=== PATIENT | female | born 1995 | race American Indian/Alaskan Native ===

== ENCOUNTER 2017-01-24 10:47 | Emergency (ER) | payer SELFPAY ==
--- NOTE | 2017-01-24 11:08 | Emergency Department Report ---
Stated Complaint: LEFT OVARIAN PAIN Time Seen by Provider: 01/24/17 11:05 - HPI History of Present Illness: pt c/o left pelvic pain x 4 days. PT states she feels swollen - ROS Review of Systems: - dysuria - Exam Physical Exam: thin female, no acute resp distress abd, flat, not ttp MSE screening note: Focused history and physical exam performed. Due to findings the following was ordered: labs ED Disposition for MSE Condition: Stable
[2017-01-24 11:09] VITALS: BP 115/70
[2017-01-24 11:42] LABS: Bilirubin,Urine NEG (Negative); Blood,Urine NEG (Negative); Ketones,Urine NEG (Negative); Leukocyte Esterase,Urine LG (Negative); Mucus,Urine FEW /HPF; Nitrite,Urine NEG (Negative); Protein,Urine <15 mg/dL mg/dL (Negative); Urobilinogen,Urine < 2.0 mg/dL (<2.0)
[2017-01-24] MEDS ORDERED: TORADOL IV ONE (12:33)
[2017-01-24] MEDS ORDERED: ZOFRAN IV ONE (12:33)
--- NOTE | 2017-01-24 12:39 | Emergency Department Report ---
HPI - General Chief Complaint: Abdominal Pain Time Seen by Provider: 01/24/17 11:05 - HPI HPI: Room 32 The patient is a 21-year-old female presenting with chief complaint left flank pain. The patient states she has her cycle approximately one week ago following day she began to feel bloated and constipated. Patient states she's had dysuria or hematuria. Patient denies fever. Patient is to nausea but denies vomiting. Patient currently gets her cramping pain score 10/10 Location: [see above] Duration: One week Quality: Cramping Severity:10/10 Modifying factors: [see above] Context: [see above] Mode of transportation: [not driving] ED Past Medical Hx - Past Medical History Previous Medical History?: Yes Additional medical history: cranial/facial disorder - Surgical History Past Surgical History?: Yes Additional Surgical History: cranial/facial surgeries (multiple) - Family History Family history: no significant - Social History Smoking Status: Never Smoker Substance Use Type: None - Medications Home Medications: Home Medications Medication Instructions Recorded Confirmed Last Taken Type Ondansetron [Zofran ODT TAB] 8 mg PO Q8HR #20 tab.rapdis 12/15/15 Unknown Rx medroxyPROGESTERone ACETATE 10 mg PO QDAY #10 tablet 12/15/15 Unknown Rx [Provera] traMADol [Ultram] 50 mg PO Q6HR PRN #14 tablet 12/15/15 Unknown Rx HYDROcodone/APAP 5-325 [[place] 1 - 2 each PO Q6HR PRN #10 tablet 01/24/17 Unknown Rx 5/325] Ibuprofen [Motrin 800 MG tab] 800 mg PO Q8HR PRN #20 tablet 01/24/17 Unknown Rx Levofloxacin [Levaquin TAB] 500 mg PO QDAY #7 tablet 01/24/17 Unknown Rx Promethazine [Phenergan TAB] 25 mg PO Q6HR PRN #20 tab 01/24/17 Unknown Rx ED Review of Systems ROS: Stated complaint: LEFT OVARIAN PAIN Other details as noted in HPI Comment: All other systems reviewed and negative Constitutional: denies: chills, fever Eyes: denies: eye pain, eye discharge, vision change ENT: denies: ear pain, throat pain Respiratory: denies: cough, shortness of breath, wheezing Cardiovascular: denies: chest pain, palpitations Endocrine: no symptoms reported Gastrointestinal: abdominal pain Genitourinary: denies: urgency, dysuria Musculoskeletal: back pain Skin: denies: rash, lesions Neurological: denies: headache, weakness, paresthesias Psychiatric: denies: anxiety, depression Physical Exam - Physical Exam Vital Signs: Vital Signs 01/24/17 11:07 Temperature 98.2 F Pulse Rate 73 Respiratory 18 Rate Blood Pressure 115/70 O2 Sat by Pulse 100 Oximetry Physical Exam: GENERAL: The patient is well-developed well-nourished female sitting on stretcher not appearing to be in acute distress. Patient appears uncomfortable as she transfers from the chair to the stretcher for examination HEENT: Atraumatic. Extraocular motions are intact. NECK: Supple. Trachea midline CHEST/LUNGS: Clear to auscultation. There is no respiratory distress noted. HEART/CARDIOVASCULAR: Regular. There is no tachycardia. There is no gallop rub or murmur. ABDOMEN: Abdomen is soft, with tenderness to palpation in the suprapubic and left lower quadrant. Patient has normal bowel sounds. There is no abdominal distention. SKIN: There is no rash. There is no edema. There is no diaphoresis. NEURO: The patient is awake, alert, and oriented. The patient is cooperative. The patient has normal speech MUSCULOSKELETAL: There is no CVA tenderness. There is no evidence of acute injury. ED Course Vital Signs 01/24/17 11:07 Temperature 98.2 F Pulse Rate 73 Respiratory 18 Rate Blood Pressure 115/70 O2 Sat by Pulse 100 Oximetry ED Medical Decision Making - Lab Data Result diagrams: 01/24/17 12:57 01/24/17 12:57 Laboratory Tests 01/24/17 01/24/17 01/24/17 11:18 12:57 12:57 WBC 4.4 L RBC 4.87 Hgb 12.2 Hct 38.1 MCV 78 L MCH 25 L MCHC 32 RDW 16.5 H Plt Count 187 Lymph % (Auto) 23.3 Butts % (Auto) 10.6 H Eos % (Auto) 0.7 Baso % (Auto) 0.7 Lymph # 1.0 L Butts # 0.5 Eos # 0.0 Baso # 0.0 Seg Neutrophils % 64.7 Seg Neutrophils # 2.9 Sodium 136 L Potassium 4.5 Chloride 102.0 Carbon Dioxide 23 Anion Gap 16 BUN 14 Creatinine 0.7 Estimated GFR > 60 BUN/Creatinine Ratio 20.00 Glucose 93 Calcium 9.1 Urine Color Yellow Urine Turbidity Slightly-cloudy Urine pH 6.0 Ur Specific Donna 1.016 Urine Protein <15 mg/dl Urine Glucose (UA) Neg Urine Ketones Neg Urine Blood Neg Urine Nitrite Neg Ur Reducing Substances Not Reportable Urine Bilirubin Neg Urine Ictotest Not Reportable Urine Urobilinogen < 2.0 Ur Leukocyte Esterase Lg Urine WBC (Auto) 58.0 H Urine RBC (Auto) 4.0 U Epithel Cells (Auto) 7.0 Urine Mucus Few Urine HCG, Qual Negative - Radiology Data Radiology results: report reviewed (CT abdomen and pelvis), image reviewed (CT abdomen and pelvis) CT abdomen and pelvis (read by radiologist)-no pathology identified. - Differential Diagnosis UTI, pyelonephritis, renal colic, tubo-ovarian abscess, ovarian cyst Critical care attestation.: If time is entered above; I have spent that time in minutes in the direct care of this critically ill patient, excluding procedure time. ED Disposition Clinical Impression: Left flank pain, Pyelonephritis Disposition: TO HOME OR SELFCARE Is pt being admited?: No Does the pt Need Aspirin: No Condition: Stable Instructions: Abdominal Pain (ED) Additional Instructions: Return to the emergency department immediately should you develop worsening symptoms, fever, inability to tolerate food or liquid or any other concerns. Prescriptions: HYDROcodone/APAP 5-325 [[place] 5/325] 1 - 2 each PO Q6HR PRN #10 tablet PRN Reason: Pain Ibuprofen [Motrin 800 MG tab] 800 mg PO Q8HR PRN #20 tablet PRN Reason: Pain Levofloxacin [Levaquin TAB] 500 mg PO QDAY #7 tablet Promethazine [Phenergan TAB] 25 mg PO Q6HR PRN #20 tab PRN Reason: Nausea Referrals: PRIMARY CARE, [Primary Care Provider] - 3-5 Days ANGELA COOLEY MD [Staff Physician] - 3-5 Days Time of Disposition: 15:32
[2017-01-24 13:19] LABS: Basophils % (Auto) 0.7 % (0.0-1.8); Eosinophils % (Auto) 0.7 % (0.0-4.3); Hematocrit 38.1 % (30.3-42.9); Hemoglobin 12.2 gm/dl (10.1-14.3); Mean Corpuscular HGB Conc 32 % (30-34); Mean Corpuscular Volume 78 fl (79-97); Platelet Count 187 K/mm3 (140-440); Red Blood Count 4.87 M/mm3 (3.65-5.03); Red Cell Distribution Width 16.5 % (13.2-15.2); White Blood Count 4.4 K/mm3 (4.5-11.0)
[2017-01-24 13:22] LABS: Mean Corpuscular Hemoglobin 25 pg (28-32)
[2017-01-24 13:36] LABS: Anion Gap 16 mmol/L; Blood Urea Nitrogen 14 mg/dL (7-17); Calcium 9.1 mg/dL (8.4-10.2); Carbon Dioxide 23 mmol/L (22-30); Glucose 93 mg/dL (65-100); Potassium 4.5 mmol/L (3.6-5.0); Sodium 136 mmol/L (137-145)
[2017-01-24] MEDS ORDERED: NACL ONE (13:49)
--- NOTE | 2017-01-24 15:17 | Cat Scan Report ---
CT abdomen and pelvis with contrast: Left lower quadrant abdominal pain; constipation. Following IV contrast transverse images are obtained the lower chest to the ischium with coronal and sagittal 2-D reformatted images. The visualized lung bases are clear. The abdominal and retroperitoneal organs are unremarkable. The noncontrasted small bowel appears grossly normal. There is a moderate fecal load in the colon along with mild gaseous distention of the colon. The relative paucity of mesenteric fat and the lack of oral contrast makes evaluation of the bowel somewhat compromised but there is no evidence of an obvious mass or inflammatory process. There is no free fluid and no free air. Sections through the pelvis demonstrate normal uterus. The osseous structures are intact. Impressions: No pathology identified.
== END 2017-01-24 16:11 | disposition home or self-care (01) ==
LOC: ED 10:47
DX: N12 Tubulo-interstitial nephritis, not specified as acute or chronic (principal)
CPT/HCPCS: 36415; 74177; 80048; 81001; 81025; 85025; 96374; 96375; 99284; J1885; J2405; Q9967